=== PATIENT | male | born 1985 | race Two or more races ===

== ENCOUNTER → 2024-09-21 | Emergency (ER) | payer OTHER ==
[~2024-09-21] VITALS: Ht 175.3 cm; Wt 109.8 kg
[~2024-09-21] MED LIST: METFORMIN HCL500 M3
== END | disposition left against medical advice (07) ==
LOC: ER 00:30
DX: Z53.21 Procedure and treatment not carried out due to patient leaving prior to being seen by health care provider (principal)

== ENCOUNTER → 2024-10-16 | Emergency (ER) | payer OTHER ==
[~2024-10-16] VITALS: Ht 170.2 cm; Wt 109.8 kg
[2024-10-16 09:55] LABS: HEMATOCRIT 41.9 % (40.1-51.0); HEMOGLOBIN 14.1 g/dL (13.7-17.5); RED BLOOD COUNT 5.11 M/uL (4.63-6.08)
[2024-10-16 09:56] LABS: BASO % 0.4 % (0.1-1.2); EOS # 0.04 (0.04-0.54); EOS % 0.5 % (0.7-7.0); LYMPH % 25.1 % (19.3-53.1); MEAN CORPUSCULAR HEMOGLOBIN 27.6 pg (25.6-32.2); MONO # 0.65 (0.24-0.82); MONO % 8.6 % (4.7-12.5); NEUT # 4.94 (1.56-6.13); NEUT % 65.3 % (34.0-71.1); PLATELET COUNT 282 K/uL (163-369); RED CELL DISTRIBUTION WIDTH 13.2 % (11.6-14.4)
[2024-10-16 10:07] LABS: ALBUMIN 3.1 gm/dL (3.4-5.0); ALKALINE PHOSPHATASE 122 U/L (50-136); ALT/SGPT 36 U/L (12-78); ANION GAP 9 (10.0-20.0); AST/SGOT 22 U/L (15-37); BILIRUBIN TOTAL 0.37 mg/dL (0.3-1.2); BILIRUBIN,CONJUGATED < 0.10 mg/dL (0.0-0.2); BILIRUBIN,UNCONJUGATED 0.27 mg/dL (0.0-0.6); BLOOD UREA NITROGEN 8 mg/dL (7-18); BUN CREA RATIO 9 (7.0-25.0); CALCIUM 8.6 mg/dL (8.5-10.1); CARBON DIOXIDE 28 mEq/L (21-32); CHLORIDE 103 mmol/L (98-107); CREATININE SERUM 0.94 mg/dL (0.70-1.30); GFR 88.44; OSMOLALITY SERUM 285 MOSM/KG (275-295); SODIUM 136 mmol/L (136-145); TOTAL PROTEIN 7.3 gm/dL (6.4-8.2)
[2024-10-16 10:08] LABS: GLUCOSE FASTING 372 mg/dL (65-100)
[2024-10-16 10:14] LABS: COCAINE POSITIVE (NEGATIVE); METHADONE NEGATIVE (NEGATIVE); OPIATES NEGATIVE (NEGATIVE); THC ( Cannabinoids) POSITIVE (NEGATIVE)
== END | disposition left against medical advice (07) ==
LOC: ER 05:48
PROVIDERS: General Practice
DX: F19.10 Other psychoactive substance abuse, uncomplicated (principal); Z88.0 Allergy status to penicillin; Z88.8 Allergy status to other drugs, medicaments and biological substances; J45.909 Unspecified asthma, uncomplicated; F31.89 Other bipolar disorder; E11.65 Type 2 diabetes mellitus with hyperglycemia; Z79.84 Long term (current) use of oral hypoglycemic drugs

== ENCOUNTER 2024-10-23 04:07 | Emergency (ER) | payer OTHER ==
[~2024-10-23] VITALS: Ht 167.6 cm; Wt 109.8 kg
[2024-10-23] MEDS ORDERED: INSULIN REGULAR, HUMAN 1,000 UNIT/10 ML UNITS SUBCUTANEO STA (05:40)
== END 2024-10-23 08:47 | disposition home or self-care (01) ==
LOC: ER 04:07
DX: E11.65 Type 2 diabetes mellitus with hyperglycemia (principal); Z79.84 Long term (current) use of oral hypoglycemic drugs; I10 Essential (primary) hypertension; B35.3 Tinea pedis; R46.0 Very low level of personal hygiene